=== PATIENT | male | born 1985 | race African-American/Black ===

== ENCOUNTER 2019-01-11 09:09 | Emergency (ER) | payer OTHER ==
[2019-01-11 09:15] VITALS: BP 144/91
--- NOTE | 2019-01-11 09:34 | ED Physician Documentation ---
PD HPI HEENT - Stated complaint Stated Complaint: EAR PX - Chief complaint Chief Complaint: Heent - History obtained from History obtained from: Patient - History of Present Illness Timing - onset: Yesterday Timing - details: Still present Location: Left ear Similar symptoms before: Has not had sx before - Additional information Additional information: The patient is a 33-year-old active [employer] [place] male who presents with earaches, much more on the left than the right. His pain started yesterday. He describes it as "pressure." He denies any associated headache, fever, or sore throat. He denies history of similar symptoms in the past. 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 Review of Systems Constitutional: denies: Fever Eyes: denies: Irritation Ears: reports: Ear pain (left more than right) Nose: denies: Congestion Throat: denies: Sore throat Cardiac: denies: Chest pain / pressure Respiratory: denies: Dyspnea, Cough GI: denies: Abdominal Pain, Nausea, Vomiting Skin: denies: Rash Musculoskeletal: denies: Neck pain Neurologic: denies: Headache PD PAST MEDICAL HISTORY - Past Medical History Past Medical History: No Cardiovascular: None Respiratory: None Endocrine/Autoimmune: None - Past Surgical History Past Surgical History: No - Present Medications Home Medications: Ambulatory Orders Medication Instructions Recorded Confirmed Amoxicillin 500 mg PO TID #21 capsule 01/11/19 - Allergies Allergies/Adverse Reactions: Allergies Allergy/AdvReac Type Severity Reaction Status Date / Time No Known Drug Allergies Allergy Verified 01/11/19 09:14 - Social History Does the pt smoke?: No Smoking Status: Never smoker PD ED PE NORMAL - Vitals Vital signs reviewed: Yes (Borderline hypertension) - General General: Alert and oriented X 3, Well developed/nourished - HEENT HEENT: Atraumatic, Pharynx benign, Other (Left tympanic membrane is mildly erythematous, without effusion. Right tympanic membrane is clear.) - Neck Neck: Supple, no meningeal sign, No adenopathy - Cardiac Cardiac: RRR - Respiratory Respiratory: No respiratory distress, Clear bilaterally - Abdomen Abdomen: Soft, Non tender - Back Back: No CVA TTP - Derm Derm: No rash - Neuro Neuro: Alert and oriented X 3, No motor deficit, Normal speech Results - Vitals Vitals: Vital Signs - 24 hr 01/11/19 09:11 Temperature 36.1 C L Heart Rate 55 L Respiratory 19 Rate Blood Pressure 144/91 H O2 Saturation 99 Oxygen O2 Source Room air PD MEDICAL DECISION MAKING - ED course Complexity details: considered differential, d/w patient ED course: The patient's presentation is most consistent with left otitis media. His presentation does not suggest meningitis or peritonsillar abscess. He is being discharged with a prescription for amoxicillin. I discussed with him antibiotic treatment, outpatient follow-up, as well as potentially worrisome signs or symptoms that should prompt reevaluation in the emergency department. Departure - Departure Disposition: Home, Self Care Clinical Impression: Left otitis media Qualifiers: Otitis media type: unspecified Qualified Code(s): H66.92 - Otitis media, unspecified, left ear Condition: Stable Instructions: ED Otitis Media Acute Adult Follow-Up: DORA Valentino [Provider Group] Prescriptions: Amoxicillin 500 mg PO TID #21 capsule Comments: Take amoxicillin 3 times daily as prescribed. You can use ibuprofen, up to 800 mg 3 times daily for anti-inflammatory effect. Follow-up with your primary physician within 2 weeks. Call to schedule an appointment. Return to the emergency department if you develop increasing pain, or otherwise worsening symptoms. Discharge Date/Time: 01/11/19 09:38
== END 2019-01-11 09:38 | disposition home or self-care (01) ==
LOC: ED 09:09
DX: H66.92 Otitis media, unspecified, left ear (principal)
CPT/HCPCS: 99282; 99283

== ENCOUNTER 2020-10-10 13:41 | Emergency (ER) | payer OTHER ==
[2020-10-10 14:10] LABS: BASOPHILS % (AUTO) 0.7 %; EOSINOPHILS # (AUTO) 0.4 10^3/uL (0.0-0.7); EOSINOPHILS % (AUTO) 6.9 %; HGB - HEMOGLOBIN 14.2 g/dL (14.0-18.0); LYMPHOCYTES # (AUTO) 1.5 10^3/uL (1.5-3.5); LYMPHOCYTES % (AUTO) 28.7 %; MEAN CORPUSCULAR VOLUME 81.7 fL (80.0-94.0); MONOCYTES # (AUTO) 0.4 10^3/uL (0.0-1.0); MONOCYTES % (AUTO) 7.6 %; NEUTROPHILS % (AUTO) 55.9 %; PLT - PLATELET COUNT 180 10^3/uL (130-450); RED BLOOD COUNT 5.26 10^6/uL (4.70-6.10); RED CELL DISTRIBUTION WIDTH 14.3 % (12.0-15.0); WHITE BLOOD COUNT 5.4 x10^3/uL (4.8-10.8)
--- NOTE | 2020-10-10 14:22 | ED Physician Documentation ---
PD HPI CHEST PAIN - Stated complaint Stated Complaint: SOA,CHEST PX - Chief complaint Chief Complaint: Cardiac - History obtained from History obtained from: Patient - Additional information Additional information: Healthy 35-year-old gentleman with no history of heart issues nor family history of same. Does not smoke and no health problems. Few weeks ago after his first Covid shot he developed some chest pain, he felt like that was due to a dietary supplement he was taking at that time which is subsequently stopped. 3 days ago had a second Covid shot, next day developed chills and a headache. The headache is persisting but today developed sharp left-sided anterior nonradiating chest pain worse with deep breathing. He denies shortness of breath. No cough. No pedal edema or calf pain. No recent travel. Review of Systems Ten Systems: 10 systems reviewed and negative Nose: denies: Rhinorrhea / runny nose Cardiac: denies: Palpitations Respiratory: denies: Dyspnea, Cough PD PAST MEDICAL HISTORY - Past Medical History Cardiovascular: None Respiratory: None Endocrine/Autoimmune: None - Past Surgical History Past Surgical History: No - Present Medications Home Medications: Ambulatory Orders Medication Instructions Recorded Confirmed Amoxicillin 500 mg PO TID #21 capsule 01/11/19 - Allergies Allergies/Adverse Reactions: Allergies Allergy/AdvReac Type Severity Reaction Status Date / Time No Known Drug Allergies Allergy Verified 10/10/20 13:50 - Social History Does the pt smoke?: No Smoking Status: Never smoker PD ED PE NORMAL - Vitals Vital signs reviewed: Yes - General General: Alert and oriented X 3, No acute distress - HEENT HEENT: PERRL, EOMI - Neck Neck: Supple, no meningeal sign, No bony TTP - Cardiac Cardiac: RRR, No murmur - Respiratory Respiratory: No respiratory distress, Clear bilaterally - Abdomen Abdomen: Non tender - Back Back: No CVA TTP, No spinal TTP - Derm Derm: Normal color, Warm and dry - Extremities Extremities: No edema, No calf tenderness / cord - Neuro Neuro: Alert and oriented X 3, Normal speech Results - Vitals Vitals: Vital Signs - 24 hr 10/10/20 10/10/20 10/10/20 13:50 14:51 14:57 Temperature 36.6 C Heart Rate 80 74 84 Respiratory 16 19 17 Rate Blood Pressure 155/86 H 142/83 H 142/83 H O2 Saturation 100 99 100 Oxygen O2 Source Room air - EKG (time done) 1346 Rate: Rate (enter#) (78) Rhythm: NSR Dixon: Normal Intervals: Normal [place] QRS: Normal Ischemia: ST elevation c/w repol. No: ST elevation c/w ischemia, ST depression Computer interpretation: Agree with computer - Labs Labs: Laboratory Tests 10/10/20 10/10/20 10/10/20 14:04 14:04 14:04 WBC 5.4 RBC 5.26 Hgb 14.2 Hct 43.0 MCV 81.7 MCH 27.0 MCHC 33.0 RDW 14.3 Plt Count 180 MPV 10.0 Neut # (Auto) 3.0 Lymph # (Auto) 1.5 [place] # (Auto) 0.4 Eos # (Auto) 0.4 Baso # (Auto) 0.0 Absolute Nucleated RBC 0.00 Nucleated RBC % 0.0 Sodium 137 Potassium 3.6 Chloride 104 Carbon Dioxide 26 Anion Gap 7.0 BUN 19 Creatinine 1.3 H Estimated GFR (MDRD) 75 L Glucose 115 H Calcium 9.2 Total Bilirubin 0.7 AST 16 ALT 15 Alkaline Phosphatase 77 Troponin I High Sens 2.4 Total Protein 7.5 Albumin 4.2 Globulin 3.3 Albumin/Globulin Ratio 1.3 Lipase 28 PD MEDICAL DECISION MAKING - ED course ED course: HEART score zero PERC zero Departure - Departure Disposition: 01 Home, Self Care Clinical Impression: Chest wall pain Condition: Good Record reviewed to determine appropriate education?: Yes Instructions: ED Chest Pain NonCardiac Comments: No suggestive of dangerous or worrisome cause of the chest pain. Could be musculoskeletal or related to recent Covid vaccine. Return if worsening or new symptoms develop. [place] Discharge Date/Time: 10/10/20 15:02
[2020-10-10 14:27] LABS: ALBUMIN 4.2 g/dL (3.2-5.5); ALBUMIN/GLOBULIN RATIO 1.3 (1.0-2.2); BILIRUBIN,TOTAL 0.7 mg/dL (0.2-1.0); CALCIUM 9.2 mg/dL (8.5-10.3); CREATININE 1.3 mg/dL (0.6-1.2); POTASSIUM 3.6 mmol/L (3.5-5.0); TOTAL PROTEIN 7.5 g/dL (6.7-8.2)
--- NOTE | 2020-10-10 14:32 | XRAY Report ---
PROCEDURE: Chest 1 View X-Ray INDICATIONS: Chest Pain TECHNIQUE: One view of the chest was acquired. COMPARISON: None. FINDINGS: Surgical changes and devices: None. Lungs and pleura: No pleural effusions or pneumothorax. Lungs are clear. Mediastinum: Mediastinal contours appear normal. Heart size is normal. Bones and chest wall: No suspicious bony lesions. Overlying soft tissues appear unremarkable. IMPRESSION: Source of chest pain is not found. Reviewed by: Neftali Armando MD on 10/10/2020 2:30 PM PDT Approved by: Neftali Armando MD on 10/10/2020 2:30 PM PDT Station ID: [id number]
[2020-10-10 14:51] VITALS: BP 142/83
== END 2020-10-10 15:02 | disposition home or self-care (01) ==
LOC: ED 13:41
DX: R07.89 Other chest pain (principal)
CPT/HCPCS: 36415; 80053; 83690; 84484; 85025; 93005; 99284